=== PATIENT | male | born 1995 | race African-American/Black ===

== ENCOUNTER 2024-06-10 19:01 | Emergency (ER) | payer OTHER ==
[~2024-06-10] VITALS: Ht 203.2 cm; Wt 90.0 kg
--- NOTE | 2024-06-10 19:38 | ED.PDOC ---
History of Present Illness HPI Comments 28-year-old male came to ER via EMS for head injury. Patient was picked up at a [facility], he has history of bipolar disorder, he had an argument with a room mate earlier, he became upset and he started banging his head repeatedly on the wall. Denies any loss of consciousness. Denies being suicidal. Chief Complaint: Head Injury Time Seen by MD: 19:37 Reviewed Notes: Graduate Fellow Notes Allergies: Coded Allergies: No Known Drug Allergy (Verified Allergy, Unknown, 06/10/24) Information Source: Patient, Emergency Med Personnel Mode of Arrival: EMS Severity: Moderate Timing: Minutes Duration: Since onset Review of Systems REVIEW OF SYSTEMS: No fever, no chills, or fatigue HEENT: No sore throat, no earache, no congestion, no neck pain. Cardiac: No chest pain. No palpitations. Lungs: No shortness of breath, no cough. GI: No nausea, no vomiting, no diarrhea, no constipation, no abdominal pain : No dysuria, frequency, or urgency. No hematuria. Musculoskeletal: No joint pain , no joint swelling, no extremity edema. Skin: No rash, no itching.(+) superficial lacerations forehead Neuro: No headache, no dizziness, no weakness Vital Signs Vital Signs Date Time Temp Pulse Resp B/P (MAP) Pulse Ox O2 Delivery O2 Flow Rate FiO2 06/10/24 19:40 97.9 96 20 137/88 (104) 99 97.9 06/10/24 19:39 Room Air* 0 21 Physical Exam General: Awake, alert and oriented. No acute distress. Skin: Skin in warm, dry and intact. Appropriate color for ethnicity. Nailbeds pink with no cyanosis. HEENT: Superficial abrasions to the forehead. No hematoma or deep laceration. Conjunctivae are clear without exudates or hemorrhage. Sclera is non-icteric. EOM are intact. Pupils equal round and reactive to light and accommodation. No signs of nystagmus. Eyelids are normal in appearance without swelling or lesions. Oral mucosa is pink and moist Neck: The neck is supple with normal range of motion. No JVD. Cardiac: Heart rate and rhythm are normal. No murmurs, gallops, or rubs are auscultated. Respiratory: No signs of respiratory distress. Lung sounds are clear in all lobes bilaterally without rales, ronchi, or wheezes. Abdominal: Abdomen is soft, non-tender without distention. Bowel sounds are present and normoactive in all four quadrants. Extremities: Upper and lower extremities are atraumatic in appearance without deformity or edema. Neurological: The patient is awake, alert and oriented to person, place, and time with normal speech. Speech is clear. There is no facial asymmetry. Patient is following commands. Strength in upper and lower extremities intact. Psychiatric: Appropriate mood and affect. Good judgement and insight. No visual or auditory hallucinations. Past Medical History Past Medical History (Other): Bipolar disorder Surgical History: Denies all surgeries Family History Family History: Reviewed,noncontributory to illness Social History Smoker: Non-Smoker Alcohol: Denies ETOH Use Drugs: Denies Drug Use Lives In: Assisted Care Was a procedure done? Was a procedure done?: No Differential Dx Considerations may include: Bipolar disorder, head injury, superficial lacerations X-Ray, Labs, Meds, VS Vital Signs Date Time Temp Pulse Resp B/P (MAP) Pulse Ox O2 Delivery O2 Flow Rate FiO2 06/10/24 19:40 97.9 96 20 137/88 (104) 99 97.9 06/10/24 19:39 96 20 99 Room Air* 0 21 06/10/24 19:13 97.9 96 20 137/88 (104) 99 Current Medications Medications (Trade) Dose Ordered Sig/Aliya Route Start Time Stop Time Status Last Admin Bacitracin 1 applic ONCE ONCE TOP 06/10/24 20:00 06/10/24 20:01 DC 06/10/24 20:15 Acetaminophen (Tylenol Tablet) 650 mg ONCE ONCE PO 06/10/24 20:00 06/10/24 20:01 DC 06/10/24 19:58 Time of 1ST Reevaluation: 19:33 Reevaluation 1ST: Unchanged Patient Education/Counseling: Diagnosis, Treatment Family Education/Counseling: No Family Present Departure 1 Departure Time of Disposition: 21:53 Impression: Primary Impression: Head injury Additional Impression: Abrasion Disposition: HOME / SELF CARE / HOMELESS Condition: Stable Additional Instructions: ED DISCHARGE INSTRUCTIONS Instructions: Please read all instructions provided in this packet carefully. Keep wounds clean and dry. Return to the emergency department with any sign of infection (swelling, redness, discharge). Apply triple antibiotic ointment 3 times daily. Although you have been discharged from the Emergency Department, this does not mean that you have a "clean bill of health". No definitive diagnosis for your symptoms has been made today. It is possible that you are in the process of developing a serious illness. This is why you must return to the ED without fail if any new or worsening symptoms (especially if your symptoms include chest pain, trouble breathing, abdominal pain, fever, headache, confusion, trouble seeing, or trouble walking) It is also very important that you see a primary care doctor within the next 3-5 days to follow up. If you are unable to get an appointment, return to the ED for re-evaluation. e-Prescriptions Bacitracin Zinc (Bacitracin) 500 Unit/Gm Oin 500 UNIT EX TID for 5 Days, #15 OIN Prov: ROWENA FISH MD 06/10/24 Comments 28-year-old male with a history of developmental delay and bipolar disorder presents after self-inflicted head injury resulting in superficial abrasions. Wounds were cleansed, dressed. CT head negative for acute intracranial process. Patient neurologically intact. Patient felt stable for discharge home. Patient well-appearing, nontoxic. Advised prompt follow-up with PCP, return to the ED with any new, worsening or concerning symptoms. Critical Care Note Critical Care Time?: No Stability Stability form required: No Heart Score Heart Score: Heart Score Response (Comments) Value History N/A 0 EKG N/A 0 Age N/A 0 Risk Factors N/A 0 Troponin N/A 0 Total 0 I personally scribed for ROWENA FISH MD ([email or web address]) on 06/10/24 at 19:38. Electronically submitted by James Morataya ([facility]). ROWENA FISH MD Jun 10, 2024 19:38
[2024-06-10 19:39] VITALS: PULSE 96; RESP 20; O2SAT 99
[2024-06-10] MEDS: ACETAMINOPHEN 325 MG TAB PO ONE (19:58)
[2024-06-10] MEDS: BACITRACIN TOP OINT 1 UD PKG TOP ONE (20:15)
--- NOTE | 2024-06-10 21:01 | DVH ---
EXAM: CT HEAD WITHOUT CONTRAST INDICATION: head injury TECHNIQUE: CT of the head without intravenous contrast. Radiation Dose Information: CT Dose: CTDI volume is 56.68 mGy. Dose-length product is 1117.07 mGy*cm The dose indicators for CT are the volume Computed Tomography (CT) Dose Index (CTDIvol) and the Dose Length Product (DLP), and are measured in units of mGy and mGy-cm, respectively. These indicators are not patient dose, but values generated from the CT scanner acquisition factors. The report includes radiation exposure data for exposures received during this examination. COMPARISON: None FINDINGS: There is no evidence of acute intracranial hemorrhage, extra-axial collection, mass effect, midline s hift, herniation or hydrocephalus. Cisterna magna The ventricles, sulci and cisterns are age appropriate. The mcgovern-white differentiation is intact. Patchy periventricular and subcortical white matter hypoattenuation is nonspecific but may be related to small vessel ischemic disease. Air-fluid level in the right maxillary sinus and mastoid air cells are clear. The surrounding soft tissues and osseous structures are unremarkable. IMPRESSION: 1. No acute intracranial hemorrhage. 2. No CT of territorial ischemia. 3. No CT findings of displaced skull fracture.
[2024-06-10] MEDS ORDERED: BACI-5 EX (21:56)
[2024-06-11 07:50] VITALS: BP 128/79; PULSE 76; RESP 18; TEMP 97.6; O2SAT 99
== END 2024-06-11 08:28 | disposition home or self-care (01) ==
LOC: EDBD 19:01 → ER 19:01
DX: S00.81XA Abrasion of other part of head, initial encounter (principal); R51.9 Headache, unspecified; X58.XXXA Exposure to other specified factors, initial encounter; Y93.89 Activity, other specified; Y92.89 Other specified places as the place of occurrence of the external cause; Y99.8 Other external cause status
CPT/HCPCS: 70450